=== PATIENT | female | born 1945 | race Caucasian/White ===

== ENCOUNTER 2018-05-03 14:38 | Inpatient (IN) ==
[2018-05-03] MEDS ORDERED: Mag Hydrox/Al Hydrox/Simeth 30 ML UDC PO PRN (20:53)
[2018-05-03] MEDS ORDERED: Ondansetron ODT 4 MG TAB.RAPDIS SL PRN (20:53)
[2018-05-03] MEDS: Melatonin 3 MG TABLET PO SCH (21:30)
[2018-05-03] MEDS: Sennosides/Docusate Sodium TABLET PO SCH (21:30)
[2018-05-03] MEDS: *HR* OxyCODONE Immed Rel 5 MG TABLET PO PRN (21:30)
[2018-05-04 05:02] LABS: Basophils % 0.3 %; Eosinophils # 0.3 K/mcL (0.0-0.6); Eosinophils % 5.3 %; Hematocrit 25.1 % (35.3-44.9); Hemoglobin 8.2 g/dL (11.5-15.4); Immature Granulocytes % 0.2 % (0-4); Lymphocytes # 1.2 K/mcL (0.6-4.6); Lymphocytes % 19.2 %; Mean Corpuscular HGB Conc 32.7 g/dL (31.6-35.5); Mean Corpuscular Hemoglobin 30.4 pg (28.0-33.3); Mean Platelet Volume 9.8 fL (9.4-12.4); Monocytes % 15.6 %; Neutrophils # 3.6 K/mcL (1.6-8.9); Platelet Count 117 K/mcL (140-400); Red Cell Distribution Width 16.1 % (11.5-14.5); Segmented Neutrophils % 59.4 %
[2018-05-04 05:08] LABS: INR 1.2; Prothrombin Time 13.9 Seconds (9.4-12.1)
[2018-05-04 05:11] LABS: Activated Partial Thrombo Time 27.4 Seconds (26.0-36.0)
[2018-05-04] MEDS: *HR* Enoxaparin 40 MG/0.4 ML SYRINGE SQ SCH (05:26)
[2018-05-04 05:30] LABS: BUN/Creatinine Ratio 33 (6-26); Blood Urea Nitrogen 12 mg/dL (8-23); Calcium 7.3 mg/dL (8.6-10.3); Carbon Dioxide 29 mEq/L (23-29); Chloride 105 mEq/L (98-107); Glucose 101 mg/dL (70-105); Osmolality,Calculated 284 (280-300); Potassium 4.2 mEq/L (3.5-5.1); Sodium 137 mEq/L (136-145); eGFR For Non-African Americans > 60 (> 60)
[2018-05-04] MEDS ORDERED: Metoprolol XL (24 HR) Succ 50 MG TAB.ER.24H PO SCH (09:00)
[2018-05-04] MEDS: Cyanocobalamin (B-12) 1,000 MCG TABLET PO SCH (09:03)
[2018-05-04] MEDS: Sennosides/Docusate Sodium TABLET PO SCH ×2 (09:03→21:37)
[2018-05-04] MEDS: Folic Acid 1 MG TABLET PO SCH (09:04)
[2018-05-04] MEDS: Vitamin B Complex/Vit C/Vit E 1 EACH TABLET PO SCH (09:04)
[2018-05-04] MEDS: *HR* OxyCODONE Immed Rel 5 MG TABLET PO PRN ×2 (09:04→21:37)
[2018-05-04] MEDS: Loratadine 10 MG TABLET PO SCH (09:04)
[2018-05-04] MEDS: Furosemide 20 MG TABLET PO SCH (09:04)
[2018-05-04] MEDS: Aspirin Enteric Coated 325 MG Tablet PO SCH (09:05)
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
[2018-05-04] MEDS: Melatonin 3 MG TABLET PO SCH (21:36)
[2018-05-05] MEDS: Ibuprofen 400 MG TABLET PO PRN (01:12)
[2018-05-05] MEDS: *HR* Enoxaparin 40 MG/0.4 ML SYRINGE SQ SCH (05:54)
[2018-05-05] MEDS: Metoprolol XL (24 HR) Succ 50 MG TAB.ER.24H PO SCH (07:45)
[2018-05-05] MEDS: Aspirin Enteric Coated 325 MG Tablet PO SCH (09:10)
[2018-05-05] MEDS: Sennosides/Docusate Sodium TABLET PO SCH ×2 (09:10→20:35)
[2018-05-05] MEDS: Cyanocobalamin (B-12) 1,000 MCG TABLET PO SCH (09:10)
[2018-05-05] MEDS: Furosemide 20 MG TABLET PO SCH (09:10)
[2018-05-05] MEDS: Vitamin B Complex/Vit C/Vit E 1 EACH TABLET PO SCH (09:10)
[2018-05-05] MEDS: Loratadine 10 MG TABLET PO SCH (09:10)
[2018-05-05] MEDS: Folic Acid 1 MG TABLET PO SCH (09:11)
--- NOTE | 2018-05-05 13:07 | Internal Med Progress Note ---
Date of Encounter: 05/05/18 Time of Encounter: 13:05 - Assessment and plan (1) Right femoral fracture Current Visit: Yes Status: Acute Assessment and plan: No acute issues. Patient's right leg continues with splint and Prem wrap Pancoast antirheumatic leg. Incisions appear dry and intact. Patient is well managed with current oral medications. Patient states that physical therapy what well on Sunday. She remains nonweightbearing to right leg. 2 with current plan of care. Qualifiers: Encounter type: initial encounter Femur location: unspecified portion of femur Fracture type: closed Fracture morphology: unspecified fracture morphology Qualified Code(s): S72.91XA - Unspecified fracture of right femur, initial encounter for closed fracture (2) Coronary artery disease Current Visit: Yes Status: Chronic Assessment and plan: No acute issues. Patient denies any chest discomforts or palpitations. Patient denies any hvik-[id number] symptoms. We will continue with current medications Qualifiers: Coronary Disease-Associated Artery/Lesion type: bypass graft [place] vs. transplanted heart: [place] heart Associated angina: without angina Qualified Code(s): I25.810 - Atherosclerosis of coronary artery bypass graft(s) without angina pectoris (3) Rheumatoid arthritis Current Visit: Yes Status: Acute Assessment and plan: No acute issues. Patient denies any current joint pain. We will continue with current medication Qualifiers: Rheumatoid arthritis location: multiple sites Rheumatoid factor presence: unspecified presence Qualified Code(s): M06.9 - Rheumatoid arthritis, unspecified (4) Iron deficiency anemia Current Visit: Yes Status: Acute Assessment and plan: Patient's current hemoglobin is 8.2 which has been a slight drop for her. We will repeat labs in the morning. Patient currently is asymptomatic on vital signs Qualifiers: Iron deficiency anemia type: other iron deficiency Qualified Code(s): D50.8 - Other iron deficiency anemias (5) Hypothyroidism Current Visit: Yes Status: Acute Assessment and plan: Patient's most recent TSH showed at 19. T3 and T4 levels pending. Continue with current Levothyroxine dose pending todays labs. Qualifiers: Hypothyroidism type: unspecified Qualified Code(s): E03.9 - Hypothyroidism , unspecified - Time Spent With Patient less than 15 minutes - Subjective Interval history: No acute issues. Patient appears relaxed and currently denies any discomforts or shortness of breath. Patient states that her pain has been fairly well- controlled to her right leg surgical incision. Patient states that physical therapy what well yesterday and denies any near syncopal type symptoms - Constitutional Vitals: Temp Pulse Resp BP Pulse Ox 98.7 F 68 16 102/63 94 05/05/18 07:18 10 07:18 10 07:18 05/05/18 07:18 05/05/18 07:18 General appearance: Present: A&O X 3 - Head Head exam: Present: atraumatic, normocephalic - Eye Eye exam: Present: PERRL, conjuntiva pink, sclera anicteric Pupils: Present: PERRL - Neck Neck exam general surgery: Present: supple, trachea midline. Absent: lymphadenopathy - Respiratory Respiratory exam: Present: CTAB. Absent: accessory muscle use, rales, rhonchi, wheezes - Cardiovascular Cardiovascular exam: Present: RRR, +S1, +S2. Absent: diastolic murmur, gallop, rubs, systolic murmur - GI/Abdominal GI/Abdominal exam: Present: normal bowel sounds, soft, no peritoneal signs. Absent: distended, tenderness - Extremities Exam Extremities exam: Present: warm, radial pulses palpable and symmetrical. Absent : calf tenderness, cyanotic, pedal edema Additional comments: Right leg continues to have a strep type dressing over a splint with no drainage noted to dressing. Distal CV is normal with capillary refill less than 3 seconds. Noted +2 edema to bilateral lower extremities - Neurological Exam Neurological exam: Present: CN II-XII intact, oriented X3, no focal deficits. Absent: pronater drift, facial droop, speech deficit - Skin Skin exam: Present: dry, intact Internal Medicine: Result - Labs CBC & Chem 7: 05/04/18 04:55 05/04/18 04:55 - ABG Interpretation ABG results: PT/INR, D-dimer PT 13.9 Seconds (9.4-12.1) H 05/04/18 04:55 Consult Discharge Plan - Plan Referrals: Darrel Loving MD [Primary Care Provider] -
[2018-05-05] MEDS: *HR* OxyCODONE Immed Rel 5 MG TABLET PO PRN ×2 (14:07→20:35)
[2018-05-05 18:27] LABS: Triiodothyronine (T3) Free 1.57 pg/mL (2.50-3.90)
[2018-05-05] MEDS: Melatonin 3 MG TABLET PO SCH (20:34)
[2018-05-05] MEDS ORDERED: NON-FORMULARY MEDICATION 1 EACH EACH (Alendronate Sodium [Fosamax] 70 MG) PO SCH (20:55)
[2018-05-06 06:01] LABS: Hematocrit 26.2 % (35.3-44.9); Hemoglobin 8.3 g/dL (11.5-15.4); Mean Corpuscular HGB Conc 31.7 g/dL (31.6-35.5); Mean Corpuscular Volume 94.6 fL (83.0-100.0); Mean Platelet Volume 9.7 fL (9.4-12.4); Platelet Count 173 K/mcL (140-400); Red Blood Count 2.77 M/mcL (3.82-4.97); Red Cell Distribution Width 17.1 % (11.5-14.5)
[2018-05-06] MEDS: *HR* Enoxaparin 40 MG/0.4 ML SYRINGE SQ SCH (06:12)
[2018-05-06] MEDS: *HR* OxyCODONE Immed Rel 5 MG TABLET PO PRN ×2 (06:12→16:31)
[2018-05-06 06:23] LABS: Alanine Aminotransferase 12 Units/L (7-52); Albumin 2.3 g/dL (3.5-5.7); Albumin/Globulin Ratio 1.5 (1.1-2.2); Alkaline Phosphatase 37 Units/L (34-104); Aspartate Amino Transferase 26 Units/L (13-39); BUN/Creatinine Ratio 29 (6-26); Bilirubin,Total 1.4 mg/dL (0.3-1.0); Blood Urea Nitrogen 11 mg/dL (8-23); Calcium 7.3 mg/dL (8.6-10.3); Carbon Dioxide 29 mEq/L (23-29); Chloride 103 mEq/L (98-107); Globulin 1.5 g/dL (2.4-3.5); Glucose 103 mg/dL (70-105); Magnesium 1.8 mg/dL (1.6-2.6); Osmolality,Calculated 280 (280-300); Potassium 4.2 mEq/L (3.5-5.1); Sodium 135 mEq/L (136-145); Total Protein 3.8 g/dL (6.4-8.9); eGFR For Non-African Americans > 60 (> 60)
[2018-05-06] MEDS: Vitamin B Complex/Vit C/Vit E 1 EACH TABLET PO SCH (08:11)
[2018-05-06] MEDS: Sennosides/Docusate Sodium TABLET PO SCH ×2 (08:11→20:46)
[2018-05-06] MEDS: Cyanocobalamin (B-12) 1,000 MCG TABLET PO SCH (08:11)
[2018-05-06] MEDS: Folic Acid 1 MG TABLET PO SCH (08:11)
[2018-05-06] MEDS: Aspirin Enteric Coated 325 MG Tablet PO SCH (08:11)
[2018-05-06] MEDS: Furosemide 20 MG TABLET PO SCH (08:12)
[2018-05-06] MEDS: Loratadine 10 MG TABLET PO SCH (08:12)
[2018-05-06] MEDS: Metoprolol XL (24 HR) Succ 50 MG TAB.ER.24H PO SCH (08:12)
[2018-05-06] MEDS: Ibuprofen 400 MG TABLET PO PRN ×2 (08:16→20:46)
--- NOTE | 2018-05-06 10:00 | Internal Med Progress Note ---
Date of Encounter: 05/06/18 Time of Encounter: 09:58 - Assessment and plan (1) Right femoral fracture Current Visit: Yes Status: Inactive Assessment and plan: No acute issues. Patient's right leg continues with splint and Prem wrap along the entire leg splint. Incisions appear dry and intact. Patient is well managed with current oral medications. Patient states that physical therapy what well on Sunday. She remains nonweightbearing to right leg. We will continue current plan of care. Patient noted to have continued moderate edema to bilateral lower extremities. We will obtain a venous Doppler of bilateral legs. Negative Homans Qualifiers: Encounter type: initial encounter Femur location: unspecified portion of femur Fracture type: closed Fracture morphology: unspecified fracture morphology Qualified Code(s): S72.91XA - Unspecified fracture of right femur, initial encounter for closed fracture (2) Coronary artery disease Current Visit: Yes Status: Chronic Assessment and plan: No acute issues. Patient denies any chest discomforts or palpitations. Patient denies any pryw-ddqubkyj-uxmi symptoms. We will continue with current medications. Arrangements are being made for consult with Dr. Wilson cardiologists to evaluate need for possible Holter monitor due to patient's history of syncope Qualifiers: Coronary Disease-Associated Artery/Lesion type: bypass graft [place] vs. transplanted heart: [place] heart Associated angina: without angina Qualified Code(s): I25.810 - Atherosclerosis of coronary artery bypass graft(s) without angina pectoris (3) Rheumatoid arthritis Current Visit: Yes Status: Acute Assessment and plan: No acute issues. Patient denies any current joint pain. We will continue with current medication Qualifiers: Rheumatoid arthritis location: multiple sites Rheumatoid factor presence: unspecified presence Qualified Code(s): M06.9 - Rheumatoid arthritis, unspecified (4) Iron deficiency anemia Current Visit: Yes Status: Acute Assessment and plan: Patient's current hemoglobin is 8.3 which has been a slight increase. We will repeat labs later in the week. Patient currently is asymptomatic on vital signs Qualifiers: Iron deficiency anemia type: other iron deficiency Qualified Code(s): D50.8 - Other iron deficiency anemias (5) Hypothyroidism Current Visit: Yes Status: Acute Assessment and plan: Patient's most recent TSH showed at 19. T3 and T4 levels rec'd with no changes in dosing required, other than dosing times. Continue with current Levothyroxine dose pending todays labs. Qualifiers: Hypothyroidism type: unspecified Qualified Code(s): E03.9 - Hypothyroidism , unspecified - Time Spent With Patient less than 15 minutes - Subjective Interval history: Patient had complained of difficulty sleeping last evening and was started on Ambien which she states had some effectiveness. Patient appears relaxed and currently denies any discomforts or shortness of breath. Patient states that her pain has been fairly well-controlled to her right leg surgical incision with her current pain medications.. Patient states that physical therapy what well yesterday and denies any near syncopal type symptoms - Constitutional Vitals: Temp Pulse Resp BP Pulse Ox 98.3 F 74 16 100/64 94 05/06/18 08:14 05/06/18 08:14 05/06/18 08:14 05/06/18 08:14 05/06/18 08:14 General appearance: Present: A&O X 3 - Head Head exam: Present: atraumatic, normocephalic - Eye Eye exam: Present: PERRL, conjuntiva pink, sclera anicteric Pupils: Present: PERRL - Neck Neck exam general surgery: Present: supple, trachea midline. Absent: lymphadenopathy - Respiratory Respiratory exam: Present: CTAB. Absent: accessory muscle use, rales, rhonchi, wheezes - Cardiovascular Cardiovascular exam: Present: RRR, +S1, +S2. Absent: diastolic murmur, gallop, rubs, systolic murmur - GI/Abdominal GI/Abdominal exam: Present: normal bowel sounds, soft, no peritoneal signs. Absent: distended, tenderness - Extremities Exam Extremities exam: Present: pedal edema, warm, radial pulses palpable and symmetrical. Absent: calf tenderness, cyanotic Additional comments: Patient has moderate 2+ edema to bilateral lower extremities. Right leg with full-length Prem wrap along splint. Appears dry and intact - Neurological Exam Neurological exam: Present: CN II-XII intact, oriented X3, no focal deficits. Absent: pronater drift, facial droop, speech deficit - Skin Skin exam: Present: dry, intact Internal Medicine: Result - Labs CBC & Chem 7: 05/06/18 05:50 05/06/18 05:50 Labs: Short CBC 05/06/18 Range/Units 05:50 WBC 6.9 (4.3-11.1) K/mcL Hgb 8.3 L (11.5-15.4) g/dL Hct 26.2 L (35.3-44.9) % Plt Count 173 (140-400) K/mcL BMP 05/06/18 05:50 Sodium 135 L Potassium 4.2 Chloride 103 Carbon Dioxide 29 BUN 11 Creatinine 0.38 L Glucose 103 Calcium 7.3 L Liver Function 05/06/18 Range/Units 05:50 Total Bilirubin 1.4 H (0.3-1.0) mg/dL AST 26 (13-39) Units/L ALT 12 (7-52) Units/L Alkaline Phosphatase 37 (34-104) Units/L Albumin 2.3 L (3.5-5.7) g/dL - ABG Interpretation ABG results: PT/INR, D-dimer PT 13.9 Seconds (9.4-12.1) H 05/04/18 04:55 Consult Discharge Plan - Plan Referrals: Darrel Loving MD [Primary Care Provider] -
[2018-05-06] MEDS: Acetaminophen 325 MG TABLET PO PRN (15:01)
[2018-05-06] MEDS: Melatonin 3 MG TABLET PO SCH (20:46)
[2018-05-07] MEDS: *HR* Enoxaparin 40 MG/0.4 ML SYRINGE SQ SCH (04:21)
[2018-05-07] MEDS: *HR* OxyCODONE Immed Rel 5 MG TABLET PO PRN ×3 (04:22→22:00)
[2018-05-07] MEDS: Loratadine 10 MG TABLET PO SCH (07:46)
[2018-05-07] MEDS: Cyanocobalamin (B-12) 1,000 MCG TABLET PO SCH (07:46)
[2018-05-07] MEDS: Folic Acid 1 MG TABLET PO SCH (07:46)
[2018-05-07] MEDS: Aspirin Enteric Coated 325 MG Tablet PO SCH (07:46)
[2018-05-07] MEDS: Acetaminophen 325 MG TABLET PO PRN (07:47)
[2018-05-07] MEDS: Vitamin B Complex/Vit C/Vit E 1 EACH TABLET PO SCH (07:47)
[2018-05-07] MEDS: Furosemide 20 MG TABLET PO SCH (07:47)
[2018-05-07] MEDS: Metoprolol XL (24 HR) Succ 50 MG TAB.ER.24H PO SCH (07:47)
[2018-05-07] MEDS: Sennosides/Docusate Sodium TABLET PO SCH ×2 (07:47→22:02)
[2018-05-07 08:58] LABS: % Iron Saturation 16 % (15-50); Iron 48 mcg/dL (50-170); Transferrin 218 mg/dL (203-362)
[2018-05-07 09:25] LABS: Folate > 22.3 ng/mL (3.0-16.0); Vitamin B12 > 1500 pg/mL (250-1100)
--- NOTE | 2018-05-07 09:44 | Internal Med Progress Note ---
Date of Encounter: 05/07/18 Time of Encounter: 09:41 - Assessment and plan (1) Femur fracture, right Current Visit: Yes Status: Acute Assessment and plan: Nonweightbearing to right lower extremity. Follow up with ortho as scheduled. Continue PT and OT. Will follow progress. Continue current pain medication. Awaiting Doppler results for bilateral lower extremities Qualifiers: Encounter type: sequela Femur location: unspecified portion of femur Fracture type: closed Fracture morphology: unspecified fracture morphology Qualified Code(s): S72.91XS - Unspecified fracture of right femur, sequela (2) Coronary artery disease Current Visit: Yes Status: Chronic Assessment and plan: Denies chest pain. Continue current medication. Qualifiers: Coronary Disease-Associated Artery/Lesion type: bypass graft [place] vs. transplanted heart: [place] heart Associated angina: without angina Qualified Code(s): I25.810 - Atherosclerosis of coronary artery bypass graft(s) without angina pectoris (3) Hypothyroidism Current Visit: Yes Status: Acute Assessment and plan: Continue current medication. Will monitor TSH and free T4 Qualifiers: Hypothyroidism type: unspecified Qualified Code(s): E03.9 - Hypothyroidism , unspecified (4) Rheumatoid arthritis Current Visit: Yes Status: Acute Assessment and plan: Denies current complaints. Continue current medications Qualifiers: Rheumatoid arthritis location: multiple sites Rheumatoid factor presence: unspecified presence Qualified Code(s): M06.9 - Rheumatoid arthritis, unspecified (5) Iron deficiency anemia Current Visit: Yes Status: Acute Assessment and plan: Last hemoglobin was 8.3. Patient asymptomatic. Will repeat labs this week Qualifiers: Iron deficiency anemia type: other iron deficiency Qualified Code(s): D50.8 - Other iron deficiency anemias - Time Spent With Patient less than 15 minutes - Subjective Interval history: Participating well with therapy. Right lower extremity remains nonweightbearing. Increased fatigue today States she did not sleep well. Pain was not an a factor but just the fact that she cannot move her right lower extremity. States last bowel movement was yesterday. Maintaining appetite and hydration. Dr. Mckeon cardiology went to see patient last night. Denies any new syncopal episodes. Denies shortness of breath or chest pain. Denies fever , chills, nausea, vomiting or diarrhea. Kirti Doppler's obtain to bilateral lower extremities. Awaiting report - Constitutional Vitals: Temp Pulse Resp BP Pulse Ox 98.0 F 68 17 109/65 98 05/07/18 07:19 05/07/18 07:19 05/07/18 07:19 05/07/18 07:19 05/07/18 07:19 General appearance: Present: cooperative, A&O X 3, pleasant, no acute distress, answers questions appropriately - Head Head exam: Present: atraumatic, normocephalic - Eye Eye exam: Present: PERRL, conjuntiva pink, sclera anicteric Pupils: Present: PERRL - Neck Neck exam general surgery: Present: supple, trachea midline. Absent: lymphadenopathy - Respiratory Respiratory exam: Present: CTAB. Absent: accessory muscle use, rales, rhonchi, wheezes - Cardiovascular Cardiovascular exam: Present: RRR, +S1, +S2. Absent: diastolic murmur, gallop, rubs, systolic murmur - GI/Abdominal GI/Abdominal exam: Present: normal bowel sounds, soft, no peritoneal signs. Absent: distended, tenderness - Extremities Exam Extremities exam: Present: warm, radial pulses palpable and symmetrical. Absent : calf tenderness, cyanotic, pedal edema Additional comments: 2+ edema to bilateral lower extremities. - [place] Comments: Dressings dry and intact to right lower extremity - Neurological Exam Neurological exam: Present: CN II-XII intact, oriented X3, no focal deficits. Absent: pronater drift, facial droop, speech deficit - Skin Skin exam: Present: dry, intact Internal Medicine: Result - Labs CBC & Chem 7: 05/06/18 05:50 05/06/18 05:50 - ABG Interpretation ABG results: PT/INR, D-dimer PT 13.9 Seconds (9.4-12.1) H 05/04/18 04:55 Consult Discharge Plan - Plan Referrals: Darrel Loving MD [Primary Care Provider] -
[2018-05-07] MEDS ORDERED: Isovue-370 500 ML INFUS..BTL IV ONE ×2 (14:16→14:46)
[2018-05-07] MEDS: Melatonin 3 MG TABLET PO SCH (22:01)
[2018-05-08] MEDS: Ibuprofen 400 MG TABLET PO PRN (02:08)
[2018-05-08] MEDS: *HR* Enoxaparin 40 MG/0.4 ML SYRINGE SQ SCH (05:09)
[2018-05-08] MEDS: *HR* OxyCODONE Immed Rel 5 MG TABLET PO PRN ×2 (05:09→21:38)
[2018-05-08] MEDS: Sennosides/Docusate Sodium TABLET PO SCH ×2 (08:11→19:44)
[2018-05-08] MEDS: Folic Acid 1 MG TABLET PO SCH (08:15)
[2018-05-08] MEDS: Vitamin B Complex/Vit C/Vit E 1 EACH TABLET PO SCH (08:15)
[2018-05-08] MEDS: Metoprolol XL (24 HR) Succ 50 MG TAB.ER.24H PO SCH (08:21)
[2018-05-08] MEDS: Aspirin Enteric Coated 325 MG Tablet PO SCH (08:21)
[2018-05-08] MEDS: Furosemide 20 MG TABLET PO SCH (08:21)
[2018-05-08] MEDS: Cyanocobalamin (B-12) 1,000 MCG TABLET PO SCH (08:21)
[2018-05-08] MEDS: Loratadine 10 MG TABLET PO SCH (08:21)
[2018-05-08] MEDS: Acetaminophen 325 MG TABLET PO PRN (08:27)
--- NOTE | 2018-05-08 09:24 | Internal Med Progress Note ---
Date of Encounter: 05/08/18 Time of Encounter: 09:20 - Assessment and plan (1) Right femoral fracture Current Visit: Yes Status: Inactive Assessment and plan: No acute issues. Patient's right leg continues with splint and Prem wrap along the entire leg splint. Incisions remained dry and intact. Pain is well managed with current oral medications, although patient states she continues to have pain during repositioning immobilization. Pain also has been improved with the use of continuous icing. She remains nonweightbearing to right leg. We will continue current plan of care and physical therapy. CTA of lower body vascular shows only mild atherosclerotic disease and shows adequate arterial runoff. Recent bilateral lower extremity Doppler showed no evidence of DVT. Patient noted to have continued moderate edema to bilateral lower extremities. Qualifiers: Encounter type: initial encounter Femur location: unspecified portion of femur Fracture type: closed Fracture morphology: unspecified fracture morphology Qualified Code(s): S72.91XA - Unspecified fracture of right femur, initial encounter for closed fracture (2) Coronary artery disease Current Visit: Yes Status: Chronic Assessment and plan: No acute issues. Patient denies any chest discomforts or palpitations. Patient continues with no evidence of [id number]-[id number] symptoms. We will continue with current medications. Qualifiers: Coronary Disease-Associated Artery/Lesion type: bypass graft [place] vs. transplanted heart: [place] heart Associated angina: without angina Qualified Code(s): I25.810 - Atherosclerosis of coronary artery bypass graft(s) without angina pectoris (3) Rheumatoid arthritis Current Visit: Yes Status: Acute Assessment and plan: No acute issues. Patient denies any current joint pain. We will continue with current medication Qualifiers: Rheumatoid arthritis location: multiple sites Rheumatoid factor presence: unspecified presence Qualified Code(s): M06.9 - Rheumatoid arthritis, unspecified - Time Spent With Patient less than 15 minutes - Subjective Interval history: Patient appears relaxed, but states she continues to have moderate pain to her right leg which increases when repositioning. Patient continues to be nonweightbearing with right leg. Patient states she slept better last night after applying ice to right leg and continues to use ice at this time while resting in chair. Patient denies any other issues. - Constitutional Vitals: Temp Pulse Resp BP Pulse Ox 98.5 F 66 16 111/60 95 05/08/18 07:14 05/08/18 07:14 05/08/18 07:14 05/08/18 07:14 05/08/18 07:14 General appearance: Present: cooperative, A&O X 3, pleasant, no acute distress, answers questions appropriately - Head Head exam: Present: atraumatic, normocephalic - Eye Eye exam: Present: PERRL, conjuntiva pink, sclera anicteric Pupils: Present: PERRL - Neck Neck exam general surgery: Present: supple, trachea midline. Absent: lymphadenopathy - Respiratory Respiratory exam: Present: CTAB. Absent: accessory muscle use, rales, rhonchi, wheezes - Cardiovascular Cardiovascular exam: Present: RRR, +S1, +S2. Absent: diastolic murmur, gallop, rubs, systolic murmur - GI/Abdominal GI/Abdominal exam: Present: normal bowel sounds, soft, no peritoneal signs. Absent: distended, tenderness - Extremities Exam Extremities exam: Present: warm, radial pulses palpable and symmetrical. Absent : calf tenderness, cyanotic, pedal edema Additional comments: Right leg continues with folate Prem wrap and splint in place. Distal CV checks show less than 3 second capillary refill. Patient continues to have moderate edema to bilateral lower extremities. - Neurological Exam Neurological exam: Present: CN II-XII intact, oriented X3, no focal deficits. Absent: pronater drift, facial droop, speech deficit - Skin Skin exam: Present: dry, intact Internal Medicine: Result - Labs CBC & Chem 7: 05/06/18 05:50 05/06/18 05:50 - ABG Interpretation ABG results: PT/INR, D-dimer PT 13.9 Seconds (9.4-12.1) H 05/04/18 04:55 - Impressions Impressions Aorta w/Runoff CTA 05/07/18 14:46 IMPRESSION: 1. Mild atherosclerotic plaque in the aortoiliac circulation with no significant inflow disease or aneurysm. Intact bilateral lower extremity runoff with limitations as noted above. 2. Extensive anasarca within the flanks bilaterally and throughout the lower extremities. The findings are nonspecific and may be related to cardiac disease. Of note, there are now bilateral pleural effusions present at the lung bases. 3. Stable large hernia containing the stomach within the thoracic cavity. No acute bowel pathology. 4. Changes of previous cholecystectomy and hysterectomy. D/ / 05/07/2018 17:22:04 Ehsan Santillan MD / [facility] Interpreting Provider: Ehsan Santillan MD Consult Discharge Plan - Plan Referrals: Darrel Loving MD [Primary Care Provider] -
[2018-05-08] MEDS: Melatonin 3 MG TABLET PO SCH (21:37)
[2018-05-09] MEDS: Ibuprofen 400 MG TABLET PO PRN ×2 (02:38→20:47)
[2018-05-09] MEDS: Acetaminophen 325 MG TABLET PO PRN (06:53)
[2018-05-09] MEDS: *HR* Enoxaparin 40 MG/0.4 ML SYRINGE SQ SCH (06:54)
[2018-05-09] MEDS: Metoprolol XL (24 HR) Succ 50 MG TAB.ER.24H PO SCH (07:52)
[2018-05-09 08:24] LABS: % Iron Saturation 15 % (15-50); Iron 48 mcg/dL (50-170); Transferrin 229 mg/dL (203-362)
[2018-05-09] MEDS: Sennosides/Docusate Sodium TABLET PO SCH ×2 (08:49→20:50)
[2018-05-09] MEDS: Vitamin B Complex/Vit C/Vit E 1 EACH TABLET PO SCH (08:55)
[2018-05-09] MEDS: Cyanocobalamin (B-12) 1,000 MCG TABLET PO SCH (08:56)
[2018-05-09] MEDS: Furosemide 20 MG TABLET PO SCH (08:57)
[2018-05-09] MEDS: Folic Acid 1 MG TABLET PO SCH (08:57)
[2018-05-09] MEDS: Loratadine 10 MG TABLET PO SCH (08:59)
[2018-05-09] MEDS: Aspirin Enteric Coated 325 MG Tablet PO SCH (08:59)
--- NOTE | 2018-05-09 09:58 | Internal Med Progress Note ---
Date of Encounter: 05/09/18 Time of Encounter: 09:56 - Assessment and plan (1) Femur fracture, right Current Visit: Yes Status: Acute Assessment and plan: Nonweightbearing to right lower extremity. Follow up with ortho as scheduled. Continue PT and OT. Will follow progress. Continue current pain medication. Qualifiers: Encounter type: sequela Femur location: unspecified portion of femur Fracture type: closed Fracture morphology: unspecified fracture morphology Qualified Code(s): S72.91XS - Unspecified fracture of right femur, sequela (2) Coronary artery disease Current Visit: Yes Status: Chronic Assessment and plan: Denies chest pain. Continue current medication. Qualifiers: Coronary Disease-Associated Artery/Lesion type: bypass graft [place] vs. transplanted heart: [place] heart Associated angina: without angina Qualified Code(s): I25.810 - Atherosclerosis of coronary artery bypass graft(s) without angina pectoris (3) Hypothyroidism Current Visit: Yes Status: Acute Assessment and plan: Continue current medication. Will monitor TSH and free T4 Qualifiers: Hypothyroidism type: unspecified Qualified Code(s): E03.9 - Hypothyroidism , unspecified (4) Rheumatoid arthritis Current Visit: Yes Status: Acute Assessment and plan: Denies current complaints. Continue current medications Qualifiers: Rheumatoid arthritis location: multiple sites Rheumatoid factor presence: unspecified presence Qualified Code(s): M06.9 - Rheumatoid arthritis, unspecified (5) Iron deficiency anemia Current Visit: Yes Status: Acute Assessment and plan: Last hemoglobin was 8.3. Patient asymptomatic. Will repeat labs in am Qualifiers: Iron deficiency anemia type: other iron deficiency Qualified Code(s): D50.8 - Other iron deficiency anemias - Time Spent With Patient less than 15 minutes - Subjective Interval history: Participating well with therapy. Right lower extremity remains nonweightbearing. Increased fatigue today States she did not sleep at all last night. taking melatonin but still unable to fall asleep. States last bowel movement was yesterday. Maintaining appetite and hydration. Denies any new syncopal episodes. Denies shortness of breath or chest pain. Denies fever, chills, nausea, vomiting or diarrhea. - Constitutional Vitals: Temp Pulse Resp BP Pulse Ox 98.3 F 64 16 97/59 95 05/09/18 07:00 05/09/18 07:00 05/09/18 07:00 05/09/18 07:00 05/09/18 07:00 General appearance: Present: cooperative, A&O X 3, pleasant, no acute distress, answers questions appropriately - Head Head exam: Present: atraumatic, normocephalic - Eye Eye exam: Present: PERRL, conjuntiva pink, sclera anicteric Pupils: Present: PERRL - Neck Neck exam general surgery: Present: supple, trachea midline. Absent: lymphadenopathy - Respiratory Respiratory exam: Present: CTAB. Absent: accessory muscle use, rales, rhonchi, wheezes - Cardiovascular Cardiovascular exam: Present: RRR, +S1, +S2. Absent: diastolic murmur, gallop, rubs, systolic murmur - GI/Abdominal GI/Abdominal exam: Present: normal bowel sounds, soft, no peritoneal signs. Absent: distended, tenderness - Extremities Exam Extremities exam: Present: warm, radial pulses palpable and symmetrical. Absent : calf tenderness, cyanotic, pedal edema Additional comments: BLE 1+pitting edema - Incison Comments: right LE incisions healing, no sign of infection. - Neurological Exam Neurological exam: Present: CN II-XII intact, oriented X3, no focal deficits. Absent: pronater drift, facial droop, speech deficit - Skin Skin exam: Present: dry, intact Internal Medicine: Result - Labs CBC & Chem 7: 05/06/18 05:50 05/06/18 05:50 - ABG Interpretation ABG results: PT/INR, D-dimer PT 13.9 Seconds (9.4-12.1) H 05/04/18 04:55 Consult Discharge Plan - Plan Referrals: Darrel Loving MD [Primary Care Provider] -
[2018-05-09] MEDS: *HR* OxyCODONE Immed Rel 5 MG TABLET PO PRN ×3 (11:05→22:52)
[2018-05-09] MEDS: Melatonin 3 MG TABLET PO SCH (20:46)
[2018-05-10] MEDS: Acetaminophen 325 MG TABLET PO PRN (01:09)
[2018-05-10 05:13] LABS: Hematocrit 29.7 % (35.3-44.9); Hemoglobin 9.3 g/dL (11.5-15.4); Mean Corpuscular HGB Conc 31.3 g/dL (31.6-35.5); Mean Corpuscular Hemoglobin 30.6 pg (28.0-33.3); Mean Corpuscular Volume 97.7 fL (83.0-100.0); Mean Platelet Volume 9.3 fL (9.4-12.4); Platelet Count 247 K/mcL (140-400); Red Blood Count 3.04 M/mcL (3.82-4.97); Red Cell Distribution Width 18.2 % (11.5-14.5)
[2018-05-10 05:29] LABS: BUN/Creatinine Ratio 27 (6-26); Blood Urea Nitrogen 11 mg/dL (8-23); Calcium 7.7 mg/dL (8.6-10.3); Carbon Dioxide 28 mEq/L (23-29); Chloride 104 mEq/L (98-107); Glucose 101 mg/dL (70-105); Osmolality,Calculated 286 (280-300); Potassium 4.4 mEq/L (3.5-5.1); Sodium 138 mEq/L (136-145); eGFR For Non-African Americans > 60 (> 60)
[2018-05-10] MEDS: *HR* Enoxaparin 40 MG/0.4 ML SYRINGE SQ SCH (06:19)
[2018-05-10] MEDS: *HR* OxyCODONE Immed Rel 5 MG TABLET PO PRN ×3 (06:20→20:54)
[2018-05-10] MEDS: Loratadine 10 MG TABLET PO SCH (08:11)
[2018-05-10] MEDS: Aspirin Enteric Coated 325 MG Tablet PO SCH (08:11)
[2018-05-10] MEDS: Vitamin B Complex/Vit C/Vit E 1 EACH TABLET PO SCH (08:11)
[2018-05-10] MEDS: Furosemide 20 MG TABLET PO SCH (08:11)
[2018-05-10] MEDS: Folic Acid 1 MG TABLET PO SCH (08:13)
[2018-05-10] MEDS: Cyanocobalamin (B-12) 1,000 MCG TABLET PO SCH (08:13)
[2018-05-10] MEDS: Metoprolol XL (24 HR) Succ 50 MG TAB.ER.24H PO SCH (08:13)
[2018-05-10] MEDS: Sennosides/Docusate Sodium TABLET PO SCH (08:14)
--- NOTE | 2018-05-10 10:06 | Internal Med Progress Note ---
Date of Encounter: 05/10/18 Time of Encounter: 10:04 - Assessment and plan (1) Femur fracture, right Current Visit: Yes Status: Acute Assessment and plan: Nonweightbearing to right lower extremity. Follow up with ortho as scheduled. Continue PT and OT. Will follow progress. Continue current pain medication. Qualifiers: Encounter type: sequela Femur location: unspecified portion of femur Fracture type: closed Fracture morphology: unspecified fracture morphology Qualified Code(s): S72.91XS - Unspecified fracture of right femur, sequela (2) Coronary artery disease Current Visit: Yes Status: Chronic Assessment and plan: Denies chest pain. Continue current medication. Qualifiers: Coronary Disease-Associated Artery/Lesion type: bypass graft [place] vs. transplanted heart: [place] heart Associated angina: without angina Qualified Code(s): I25.810 - Atherosclerosis of coronary artery bypass graft(s) without angina pectoris (3) Hypothyroidism Current Visit: Yes Status: Acute Assessment and plan: Continue current medication. Will monitor TSH and free T4 Qualifiers: Hypothyroidism type: unspecified Qualified Code(s): E03.9 - Hypothyroidism , unspecified (4) Rheumatoid arthritis Current Visit: Yes Status: Acute Assessment and plan: Denies pain. Qualifiers: Rheumatoid arthritis location: multiple sites Rheumatoid factor presence: unspecified presence Qualified Code(s): M06.9 - Rheumatoid arthritis, unspecified (5) Iron deficiency anemia Current Visit: Yes Status: Acute Assessment and plan: Improving. Hemoglobin 9.3 Patient asymptomatic. Qualifiers: Iron deficiency anemia type: other iron deficiency Qualified Code(s): D50.8 - Other iron deficiency anemias (6) Protein deficiency Current Visit: Yes Status: Acute Assessment and plan: Increase protein intake. Patient states she will bring her protein drinks from home. Encourage drink 2 to 3 per day - Time Spent With Patient less than 15 minutes - Subjective Interval history: Participating well with therapy. Right lower extremity remains nonweightbearing. States she slept last night with increasing melatonin. States last bowel movement was yesterday. Maintaining appetite and hydration. Denies any new syncopal episodes. Denies shortness of breath or chest pain. Denies fever, chills, nausea, vomiting or diarrhea. Discussed bilateral lower extremity edema and low albumin levels. Patient states she likes premier protein drinks. Encouraged to drink 2 to 3 per day. - Constitutional Vitals: Temp Pulse Resp BP Pulse Ox 97.7 F 70 16 122/56 96 05/10/18 07:00 05/10/18 07:00 05/10/18 07:00 05/10/18 07:00 05/10/18 07:00 General appearance: Present: cooperative, A&O X 3, pleasant, no acute distress, answers questions appropriately - Head Head exam: Present: atraumatic, normocephalic - Eye Eye exam: Present: PERRL, conjuntiva pink, sclera anicteric Pupils: Present: PERRL - Neck Neck exam general surgery: Present: supple, trachea midline. Absent: lymphadenopathy - Respiratory Respiratory exam: Present: CTAB. Absent: accessory muscle use, rales, rhonchi, wheezes - Cardiovascular Cardiovascular exam: Present: RRR, +S1, +S2. Absent: diastolic murmur, gallop, rubs, systolic murmur - GI/Abdominal GI/Abdominal exam: Present: normal bowel sounds, soft, no peritoneal signs. Absent: distended, tenderness - Extremities Exam Extremities exam: Present: warm, radial pulses palpable and symmetrical. Absent : calf tenderness, cyanotic, pedal edema Additional comments: Bilateral lower extremity edema - Incison Comments: Right lower extremity dressings dry and intact. Brace on - Neurological Exam Neurological exam: Present: CN II-XII intact, oriented X3, no focal deficits. Absent: pronater drift, facial droop, speech deficit - Skin Skin exam: Present: dry, intact Additional comments: Left lower extremity dressing dry and intact Internal Medicine: Result - Labs CBC & Chem 7: 05/10/18 05:07 05/10/18 05:07 Labs: Short CBC 05/10/18 Range/Units 05:07 WBC 7.0 (4.3-11.1) K/mcL Hgb 9.3 L (11.5-15.4) g/dL Hct 29.7 L (35.3-44.9) % Plt Count 247 (140-400) K/mcL BMP 05/10/18 05:07 Sodium 138 Potassium 4.4 Chloride 104 Carbon Dioxide 28 BUN 11 Creatinine 0.41 L Glucose 101 Calcium 7.7 L - ABG Interpretation ABG results: PT/INR, D-dimer PT 13.9 Seconds (9.4-12.1) H 05/04/18 04:55 Consult Discharge Plan - Plan Referrals: Darrel Loving MD [Primary Care Provider] -
[2018-05-10] MEDS: Melatonin 3 MG TABLET PO SCH (20:52)
[2018-05-11] MEDS: Sennosides/Docusate Sodium TABLET PO SCH ×3 (00:27→20:26)
[2018-05-11] MEDS: Ibuprofen 400 MG TABLET PO PRN (01:56)
[2018-05-11] MEDS: *HR* OxyCODONE Immed Rel 5 MG TABLET PO PRN ×2 (05:22→22:49)
[2018-05-11] MEDS: *HR* Enoxaparin 40 MG/0.4 ML SYRINGE SQ SCH (05:23)
[2018-05-11] MEDS: Vitamin B Complex/Vit C/Vit E 1 EACH TABLET PO SCH (09:38)
[2018-05-11] MEDS: Furosemide 20 MG TABLET PO SCH (09:38)
[2018-05-11] MEDS: Cyanocobalamin (B-12) 1,000 MCG TABLET PO SCH (09:38)
[2018-05-11] MEDS: Metoprolol XL (24 HR) Succ 50 MG TAB.ER.24H PO SCH (09:38)
[2018-05-11] MEDS: Loratadine 10 MG TABLET PO SCH (09:38)
[2018-05-11] MEDS: Aspirin Enteric Coated 325 MG Tablet PO SCH (09:38)
[2018-05-11] MEDS: Folic Acid 1 MG TABLET PO SCH (09:38)
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
[2018-05-11] MEDS: Melatonin 3 MG TABLET PO SCH (20:27)
[2018-05-12] MEDS: *HR* Enoxaparin 40 MG/0.4 ML SYRINGE SQ SCH (06:18)
[2018-05-12] MEDS: Metoprolol XL (24 HR) Succ 50 MG TAB.ER.24H PO SCH (07:59)
[2018-05-12] MEDS: Ibuprofen 400 MG TABLET PO PRN (09:29)
[2018-05-12] MEDS: Vitamin B Complex/Vit C/Vit E 1 EACH TABLET PO SCH (09:29)
[2018-05-12] MEDS: Folic Acid 1 MG TABLET PO SCH (09:30)
[2018-05-12] MEDS: Cyanocobalamin (B-12) 1,000 MCG TABLET PO SCH (09:30)
[2018-05-12] MEDS: Aspirin Enteric Coated 325 MG Tablet PO SCH (09:30)
[2018-05-12] MEDS: Furosemide 20 MG TABLET PO SCH (09:30)
[2018-05-12] MEDS: Loratadine 10 MG TABLET PO SCH (09:30)
--- NOTE | 2018-05-12 10:15 | Internal Med Progress Note ---
Date of Encounter: 05/12/18 Time of Encounter: 10:13 - Assessment and plan (1) Femur fracture, right Current Visit: Yes Status: Acute Assessment and plan: Nonweightbearing to right lower extremity. Follow up with ortho as scheduled. Continue PT and OT. Will follow progress. Continue current pain medication. Qualifiers: Encounter type: sequela Femur location: unspecified portion of femur Fracture type: closed Fracture morphology: unspecified fracture morphology Qualified Code(s): S72.91XS - Unspecified fracture of right femur, sequela (2) Coronary artery disease Current Visit: Yes Status: Chronic Assessment and plan: Denies chest pain. Continue current medication. Qualifiers: Coronary Disease-Associated Artery/Lesion type: bypass graft [place] vs. transplanted heart: [place] heart Associated angina: without angina Qualified Code(s): I25.810 - Atherosclerosis of coronary artery bypass graft(s) without angina pectoris (3) Hypothyroidism Current Visit: Yes Status: Acute Assessment and plan: Continue current medication. Will monitor TSH and free T4 Qualifiers: Hypothyroidism type: unspecified Qualified Code(s): E03.9 - Hypothyroidism , unspecified (4) Rheumatoid arthritis Current Visit: Yes Status: Acute Assessment and plan: Denies pain. Qualifiers: Rheumatoid arthritis location: multiple sites Rheumatoid factor presence: unspecified presence Qualified Code(s): M06.9 - Rheumatoid arthritis, unspecified (5) Iron deficiency anemia Current Visit: Yes Status: Acute Assessment and plan: Improving. Hemoglobin 9.3 Patient asymptomatic. Will repeat labs tomorrow Qualifiers: Iron deficiency anemia type: other iron deficiency Qualified Code(s): D50.8 - Other iron deficiency anemias (6) Protein deficiency Current Visit: Yes Status: Acute Assessment and plan: Increase protein intake. Patient states she will bring her protein drinks from home. Encourage drink 2 to 3 per day - Time Spent With Patient less than 15 minutes - Subjective Interval history: Right lower extremity remains nonweightbearing. Maintaining appetite and hydration. Denies any new syncopal episodes. Denies shortness of breath or chest pain. Denies fever, chills, nausea, vomiting or diarrhea. States that she slept well and last bowel movement was yesterday. - Constitutional Vitals: Temp Pulse Resp BP Pulse Ox 98.5 F 70 16 100/64 93 05/12/18 07:03 05/12/18 07:03 05/12/18 07:03 05/12/18 07:03 05/12/18 07:03 General appearance: Present: cooperative, A&O X 3, pleasant, no acute distress, answers questions appropriately - Head Head exam: Present: atraumatic, normocephalic - Eye Eye exam: Present: PERRL, conjuntiva pink, sclera anicteric Pupils: Present: PERRL - Neck Neck exam general surgery: Present: supple, trachea midline. Absent: lymphadenopathy - Respiratory Respiratory exam: Present: CTAB. Absent: accessory muscle use, rales, rhonchi, wheezes - Cardiovascular Cardiovascular exam: Present: RRR, +S1, +S2. Absent: diastolic murmur, gallop, rubs, systolic murmur - GI/Abdominal GI/Abdominal exam: Present: normal bowel sounds, soft, no peritoneal signs. Absent: distended, tenderness - Extremities Exam Extremities exam: Present: warm, radial pulses palpable and symmetrical. Absent : calf tenderness, cyanotic, pedal edema Additional comments: Bilateral lower extremities with non-pitting edema. Both wrapped with senait wraps . - Incison Comments: Incisions to right lower extremity dry and intact. - Neurological Exam Neurological exam: Present: CN II-XII intact, oriented X3, no focal deficits. Absent: pronater drift, facial droop, speech deficit - Skin Skin exam: Present: dry, intact Internal Medicine: Result - Labs CBC & Chem 7: 05/10/18 05:07 05/10/18 05:07 - ABG Interpretation ABG results: PT/INR, D-dimer PT 13.9 Seconds (9.4-12.1) H 05/04/18 04:55 Consult Discharge Plan - Plan Referrals: Darrel Loving MD [Primary Care Provider] -
[2018-05-12] MEDS: Sennosides/Docusate Sodium TABLET PO SCH ×2 (11:42→22:29)
[2018-05-12] MEDS: Acetaminophen 325 MG TABLET PO PRN (14:18)
[2018-05-12] MEDS: *HR* OxyCODONE Immed Rel 5 MG TABLET PO PRN (22:29)
[2018-05-12] MEDS: Melatonin 3 MG TABLET PO SCH (22:29)
[2018-05-13 06:16] LABS: Hemoglobin 8.9 g/dL (11.5-15.4); Mean Corpuscular HGB Conc 30.7 g/dL (31.6-35.5); Mean Corpuscular Hemoglobin 30.1 pg (28.0-33.3); Mean Platelet Volume 9.4 fL (9.4-12.4); Platelet Count 272 K/mcL (140-400); Red Blood Count 2.96 M/mcL (3.82-4.97); Red Cell Distribution Width 18.3 % (11.5-14.5)
[2018-05-13] MEDS: *HR* Enoxaparin 40 MG/0.4 ML SYRINGE SQ SCH (06:16)
[2018-05-13] MEDS: *HR* OxyCODONE Immed Rel 5 MG TABLET PO PRN ×2 (06:16→22:55)
[2018-05-13 06:31] LABS: Alanine Aminotransferase 14 Units/L (7-52); Albumin 2.6 g/dL (3.5-5.7); Albumin/Globulin Ratio 1.5 (1.1-2.2); Alkaline Phosphatase 67 Units/L (34-104); Aspartate Amino Transferase 27 Units/L (13-39); BUN/Creatinine Ratio 50 (6-26); Bilirubin,Total 0.7 mg/dL (0.3-1.0); Blood Urea Nitrogen 19 mg/dL (8-23); Carbon Dioxide 29 mEq/L (23-29); Chloride 102 mEq/L (98-107); Globulin 1.7 g/dL (2.4-3.5); Glucose 91 mg/dL (70-105); Osmolality,Calculated 284 (280-300); Potassium 4.3 mEq/L (3.5-5.1); Sodium 136 mEq/L (136-145); Total Protein 4.3 g/dL (6.4-8.9); eGFR For Non-African Americans > 60 (> 60)
[2018-05-13] MEDS: Aspirin Enteric Coated 325 MG Tablet PO SCH (08:03)
[2018-05-13] MEDS: Cyanocobalamin (B-12) 1,000 MCG TABLET PO SCH (08:03)
[2018-05-13] MEDS: Loratadine 10 MG TABLET PO SCH (08:03)
[2018-05-13] MEDS: Folic Acid 1 MG TABLET PO SCH (08:03)
[2018-05-13] MEDS: Vitamin B Complex/Vit C/Vit E 1 EACH TABLET PO SCH (08:03)
[2018-05-13] MEDS: Metoprolol XL (24 HR) Succ 50 MG TAB.ER.24H PO SCH (08:12)
[2018-05-13] MEDS: Furosemide 20 MG TABLET PO SCH (08:12)
[2018-05-13] MEDS: Sennosides/Docusate Sodium TABLET PO SCH ×2 (08:12→22:54)
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
[2018-05-13] MEDS: Melatonin 3 MG TABLET PO SCH (22:56)
[2018-05-14] MEDS: *HR* Enoxaparin 40 MG/0.4 ML SYRINGE SQ SCH (05:58)
[2018-05-14] MEDS: Ibuprofen 400 MG TABLET PO PRN (10:25)
[2018-05-14] MEDS: Vitamin B Complex/Vit C/Vit E 1 EACH TABLET PO SCH (10:25)
[2018-05-14] MEDS: Cyanocobalamin (B-12) 1,000 MCG TABLET PO SCH (10:25)
[2018-05-14] MEDS: Sennosides/Docusate Sodium TABLET PO SCH ×2 (10:26→22:30)
[2018-05-14] MEDS: Loratadine 10 MG TABLET PO SCH (10:26)
[2018-05-14] MEDS: Furosemide 20 MG TABLET PO SCH (10:26)
[2018-05-14] MEDS: Aspirin Enteric Coated 325 MG Tablet PO SCH (10:26)
[2018-05-14] MEDS: Folic Acid 1 MG TABLET PO SCH (10:27)
[2018-05-14] MEDS: Metoprolol XL (24 HR) Succ 50 MG TAB.ER.24H PO SCH (10:27)
--- NOTE | 2018-05-14 10:47 | Internal Med Progress Note ---
Date of Encounter: 05/14/18 Time of Encounter: 10:45 - Assessment and plan (1) Femur fracture, right Current Visit: Yes Status: Acute Assessment and plan: Nonweightbearing to right lower extremity. Follow up with ortho as scheduled. Continue PT and OT. Will follow progress. Continue current pain medication. Qualifiers: Encounter type: sequela Femur location: unspecified portion of femur Fracture type: closed Fracture morphology: unspecified fracture morphology Qualified Code(s): S72.91XS - Unspecified fracture of right femur, sequela (2) Coronary artery disease Current Visit: Yes Status: Chronic Assessment and plan: Denies chest pain. Continue current medication. Qualifiers: Coronary Disease-Associated Artery/Lesion type: bypass graft [place] vs. transplanted heart: [place] heart Associated angina: without angina Qualified Code(s): I25.810 - Atherosclerosis of coronary artery bypass graft(s) without angina pectoris (3) Hypothyroidism Current Visit: Yes Status: Acute Assessment and plan: Continue current medication. Will monitor TSH and free T4 Qualifiers: Hypothyroidism type: unspecified Qualified Code(s): E03.9 - Hypothyroidism , unspecified (4) Rheumatoid arthritis Current Visit: Yes Status: Acute Assessment and plan: Denies pain. Qualifiers: Rheumatoid arthritis location: multiple sites Rheumatoid factor presence: unspecified presence Qualified Code(s): M06.9 - Rheumatoid arthritis, unspecified (5) Iron deficiency anemia Current Visit: Yes Status: Acute Assessment and plan: Improving. Hemoglobin 8.9 Patient asymptomatic. Qualifiers: Iron deficiency anemia type: other iron deficiency Qualified Code(s): D50.8 - Other iron deficiency anemias (6) Protein deficiency Current Visit: Yes Status: Acute Assessment and plan: Increase protein intake. Patient states she will bring her protein drinks from home. Encourage drink 2 to 3 per day - Subjective Interval history: Right lower extremity remains nonweightbearing. Maintaining appetite and hydration. Denies any new syncopal episodes. Denies shortness of breath or chest pain. Denies fever, chills, nausea, vomiting or diarrhea. States that she slept well and last bowel movement was yesterday. Went for home safety visit yesterday. Feels that it went well. Propel self in wheelchair. Scheduled for discharge tomorrow. - Constitutional Vitals: Temp Pulse Resp BP Pulse Ox 97.7 F 73 18 100/65 99 05/14/18 09:00 05/14/18 09:00 05/14/18 09:00 05/14/18 09:00 05/14/18 09:00 General appearance: Present: cooperative, A&O X 3, pleasant, no acute distress, answers questions appropriately - Head Head exam: Present: atraumatic, normocephalic - Eye Eye exam: Present: PERRL, conjuntiva pink, sclera anicteric Pupils: Present: PERRL - Neck Neck exam general surgery: Present: supple, trachea midline. Absent: lymphadenopathy - Respiratory Respiratory exam: Present: CTAB. Absent: accessory muscle use, rales, rhonchi, wheezes - Cardiovascular Cardiovascular exam: Present: RRR, +S1, +S2. Absent: diastolic murmur, gallop, rubs, systolic murmur - GI/Abdominal GI/Abdominal exam: Present: normal bowel sounds, soft, no peritoneal signs. Absent: distended, tenderness - Extremities Exam Extremities exam: Present: warm, radial pulses palpable and symmetrical. Absent : calf tenderness, cyanotic, pedal edema Additional comments: Edema wrap bilateral lower extremities. Wearing brace - Neurological Exam Neurological exam: Present: CN II-XII intact, oriented X3, no focal deficits. Absent: pronater drift, facial droop, speech deficit - Skin Skin exam: Present: dry, intact Additional comments: Right lower extremity incision dressing dry and intact. Internal Medicine: Result - Labs CBC & Chem 7: 05/13/18 05:55 05/13/18 05:55 - ABG Interpretation ABG results: PT/INR, D-dimer PT 13.9 Seconds (9.4-12.1) H 05/04/18 04:55 Consult Discharge Plan - Plan Referrals: Darrel Loving MD [Primary Care Provider] -
[2018-05-14] MEDS: *HR* OxyCODONE Immed Rel 5 MG TABLET PO PRN (22:28)
[2018-05-14] MEDS: Melatonin 3 MG TABLET PO SCH (22:28)
[2018-05-15] MEDS: *HR* Enoxaparin 40 MG/0.4 ML SYRINGE SQ SCH (04:38)
[2018-05-15] MEDS: Furosemide 20 MG TABLET PO SCH (10:28)
[2018-05-15] MEDS: Sennosides/Docusate Sodium TABLET PO SCH ×2 (10:28→22:19)
[2018-05-15] MEDS: Vitamin B Complex/Vit C/Vit E 1 EACH TABLET PO SCH (10:29)
[2018-05-15] MEDS: Metoprolol XL (24 HR) Succ 50 MG TAB.ER.24H PO SCH (10:29)
[2018-05-15] MEDS: Cyanocobalamin (B-12) 1,000 MCG TABLET PO SCH (10:29)
[2018-05-15] MEDS: Loratadine 10 MG TABLET PO SCH (10:29)
[2018-05-15] MEDS: Folic Acid 1 MG TABLET PO SCH (10:29)
[2018-05-15] MEDS: Aspirin Enteric Coated 325 MG Tablet PO SCH (10:29)
--- NOTE | 2018-05-15 12:04 | Internal Med Progress Note ---
Addendum entered and electronically signed by Giovanni Martin MD 05/16/18 12:24: Multiple attempts to see patient were unsuccessful because she was in the bathroom or therapies, etc. Original Note: Date of Encounter: 05/15/18 Time of Encounter: 12:02 - Assessment and plan (1) Femur fracture, right Current Visit: Yes Status: Acute Assessment and plan: Nonweightbearing to right lower extremity. Follow up with ortho as scheduled. Continue PT and OT. Will follow progress. Continue current pain medication. Qualifiers: Encounter type: sequela Femur location: unspecified portion of femur Fra cture type: closed Fracture morphology: unspecified fracture morphology Qualified Code(s): S72.91XS - Unspecified fracture of right femur, sequela (2) Coronary artery disease Current Visit: Yes Status: Chronic Assessment and plan: Denies chest pain. Continue current medication. Qualifiers: Coronary Disease-Associated Artery/Lesion type: bypass graft [place] vs. transplanted heart: [place] heart Associated angina: without angina Qualified Code(s): I25.810 - Atherosclerosis of coronary artery bypass graft(s) without angina pectoris (3) Hypothyroidism Current Visit: Yes Status: Acute Assessment and plan: Continue current medication. Will monitor TSH and free T4 Qualifiers: Hypothyroidism type: unspecified Qualified Code(s): E03.9 - Hypothyroidism, unspecified (4) Rheumatoid arthritis Current Visit: Yes Status: Acute Assessment and plan: Denies pain. Qualifiers: Rheumatoid arthritis location: multiple sites Rheumatoid factor presence: unspecified presence Qualified Code(s): M06.9 - Rheumatoid arthritis, unspecified (5) Iron deficiency anemia Current Visit: Yes Status: Acute Assessment and plan: Improving. monitor CBC Patient asymptomatic. Qualifiers: Iron deficiency anemia type: other iron deficiency Qualified Code(s): D50.8 - Other iron deficiency anemias (6) Protein deficiency Current Visit: Yes Status: Acute Assessment and plan: Increase protein intake. Patient states she will bring her protein drinks from home. Encourage drink 2 to 3 per day - Time Spent With Patient less than 15 minutes - Subjective Interval history: Right lower extremity remains nonweightbearing. Maintaining appetite and hydration. Denies any new syncopal episodes. Denies shortness of breath or chest pain. Denies fever, chills, nausea, vomiting or diarrhea. States that she slept well and last bowel movement was this am. Propel self in wheelchair. Scheduled for discharge tomorrow. - Constitutional Vitals: Temp Pulse Resp BP Pulse Ox 97.9 F 90 16 102/64 90 05/15/18 07:54 05/15/18 07:54 05/15/18 07:54 05/15/18 07:54 05/15/18 07:54 General appearance: Present: cooperative, A&O X 3, pleasant, no acute distress, answers questions appropriately - Head Head exam: Present: atraumatic, normocephalic - Eye Eye exam: Present: PERRL, conjuntiva pink, sclera anicteric Pupils: Present: PERRL - Neck Neck exam general surgery: Present: supple, trachea midline. Absent: lymphadenopathy - Respiratory Respiratory exam: Present: CTAB. Absent: accessory muscle use, rales, rhonchi, wheezes - Cardiovascular Cardiovascular exam: Present: RRR, +S1, +S2. Absent: diastolic murmur, gallop, rubs, systolic murmur - GI/Abdominal GI/Abdominal exam: Present: normal bowel sounds, soft, no peritoneal signs. Absent: distended, tenderness - Extremities Exam Extremities exam: Present: warm, radial pulses palpable and symmetrical. Absent: calf tenderness, cyanotic, pedal edema Additional comments: RLE drsg dry and intact, leg wrapped with senait wrap and brace on. - Neurological Exam Neurological exam: Present: CN II-XII intact, oriented X3, no focal deficits. Absent: pronater drift, facial droop, speech deficit - Skin Skin exam: Present: dry, intact Internal Medicine: Result - Labs CBC & Chem 7: 05/13/18 05:55 05/13/18 05:55 - ABG Interpretation ABG results: PT/INR, D-dimer PT 13.9 Seconds (9.4-12.1) H 05/04/18 04:55 Consult Discharge Plan - Plan Referrals: Darrel Loving MD [Primary Care Provider] -
[2018-05-15 12:06] LABS: Basophils % 0.6 %; Eosinophils # 0.3 K/mcL (0.0-0.6); Eosinophils % 4.8 %; Hematocrit 30.6 % (35.3-44.9); Hemoglobin 9.7 g/dL (11.5-15.4); Immature Granulocytes % 0.2 % (0-4); Lymphocytes # 1.2 K/mcL (0.6-4.6); Lymphocytes % 19.2 %; Mean Corpuscular HGB Conc 31.7 g/dL (31.6-35.5); Mean Corpuscular Hemoglobin 31.4 pg (28.0-33.3); Mean Platelet Volume 9.3 fL (9.4-12.4); Monocytes # 0.7 K/mcL (0.0-1.3); Monocytes % 11.2 %; Neutrophils # 4.1 K/mcL (1.6-8.9); Platelet Count 286 K/mcL (140-400); Red Blood Count 3.09 M/mcL (3.82-4.97); Red Cell Distribution Width 18.4 % (11.5-14.5)
[2018-05-15 12:14] LABS: Alanine Aminotransferase 22 Units/L (7-52); Albumin/Globulin Ratio 1.5 (1.1-2.2); Alkaline Phosphatase 73 Units/L (34-104); Aspartate Amino Transferase 37 Units/L (13-39); BUN/Creatinine Ratio 42 (6-26); Bilirubin,Total 0.8 mg/dL (0.3-1.0); Blood Urea Nitrogen 19 mg/dL (8-23); Calcium 8.6 mg/dL (8.6-10.3); Carbon Dioxide 30 mEq/L (23-29); Chloride 100 mEq/L (98-107); Glucose 108 mg/dL (70-105); Osmolality,Calculated 285 (280-300); Potassium 4.4 mEq/L (3.5-5.1); Sodium 136 mEq/L (136-145); eGFR For Non-African Americans > 60 (> 60)
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
[2018-05-15 19:27] VITALS: BP 104/65
[2018-05-15] MEDS: Melatonin 3 MG TABLET PO SCH (22:09)
[2018-05-15] MEDS: *HR* OxyCODONE Immed Rel 5 MG TABLET PO PRN (22:10)
[2018-05-16] MEDS: Folic Acid 1 MG TABLET PO SCH (09:59)
[2018-05-16] MEDS: Sennosides/Docusate Sodium TABLET PO SCH (09:59)
[2018-05-16] MEDS: Furosemide 20 MG TABLET PO SCH (09:59)
[2018-05-16] MEDS: Loratadine 10 MG TABLET PO SCH (09:59)
[2018-05-16] MEDS: Aspirin Enteric Coated 325 MG Tablet PO SCH (09:59)
[2018-05-16] MEDS: Vitamin B Complex/Vit C/Vit E 1 EACH TABLET PO SCH (09:59)
[2018-05-16] MEDS: Metoprolol XL (24 HR) Succ 50 MG TAB.ER.24H PO SCH (09:59)
[2018-05-16] MEDS: Cyanocobalamin (B-12) 1,000 MCG TABLET PO SCH (09:59)
--- NOTE | 2018-05-16 11:55 | Physician Discharge Referral ---
Addendum entered and electronically signed by Giovanni Martin MD 05/16/18 12:27: Original Note: Home Health/Hosp Referral Info Transfer to: Home Health Provider in Charge Post Discharge: PCP - Diagnosis (1) Femur fracture, right Priority: Primary Status: Acute (2) Coronary artery disease Priority: Secondary Status: Chronic (3) Hypothyroidism Priority: Secondary Status: Acute (4) Rheumatoid arthritis Priority: Secondary Status: Acute (5) Iron deficiency anemia Priority: Secondary Status: Acute (6) Protein deficiency Priority: Secondary Status: Acute - Respiratory Orders Smoking Cessation: Smoking cessation has been advised. For more information, call the [place] Tobacco Quit Line at 2-945-CABD-NOW. - Diet/Nutrition Diet/Nutrition Orders: Regular - Activity Activity Orders: Chair Activity: List: Nonweightbearing to right lower extremity - Services Needed Following services are medically necessary services: Nursing, Physical Therapy - Transfer Medications Home Medications: Acetaminophen [Tylenol] 650 mg PO Q4HR PRN 05/03/18 [History] Alendronate Sodium [Fosamax] 70 mg PO GREGORY 05/03/18 [History] Aspirin [Ecotrin] 325 mg PO DAILY 05/03/18 [History] Atorvastatin Calcium [Lipitor] 80 mg PO HS 05/03/18 [History] Cyanocobalamin (Vitamin B-12) [Vitamin B12] 125 mcg PO DAILY 05/03/18 [History] Ferrous Sulfate [Iron] 325 mg PO BID 05/03/18 [History] Folic Acid 1 mg PO DAILY 05/03/18 [History] Furosemide [Lasix] 20 mg PO DAILY 05/03/18 [History] Hydroxychloroquine Sulfate [Plaquenil] 200 mg PO BID 05/03/18 [History] Ibuprofen [Ibu] 400 mg PO Q8HR PRN 05/03/18 [History] Levothyroxine [Synthroid] 125 mcg PO DAILY 05/03/18 [History] Liothyronine Sodium [Cytomel] 10 mcg PO DAILY 05/03/18 [History] Loratadine [Claritin] 10 mg PO DAILY 05/03/18 [History] Melatonin 3 mg PO HS 05/03/18 [History] Metoprolol Succinate [Toprol Xl] 50 mg PO DAILY 05/03/18 [History] OxyCODONE Immed Rel [Roxicodone 5 MG] 5 mg PO Q6HR PRN 05/03/18 [History] Oxybutynin Chloride [Ditropan Xl] 5 mg PO DAILY 05/03/18 [History] Pantoprazole Sodium [Protonix] 40 mg PO DAILY 05/03/18 [History] Polyethylene Glycol 3350 [MiraLAX] 17 gm PO DAILY 05/03/18 [History] Sennosides/Docusate Sodium [Docusate Sodium-Senna Tablet] 1 each PO BID 05/03/18 [History] Vitamin B Complex [B Complex] 1 each PO DAILY 05/03/18 [History] Allergies/Adverse Reactions: Allergy/AdvReac Type Severity Reaction Status Date / Time Sulfa (Sulfonamide Allergy Hives Verified 05/03/18 20:19 Antibiotics) Certification: Further, I certify that my clinical findings support that this patient is home bound (i.e. absences from home require considerable and taxing effort and are for medical reasons or rastafari services or infrequently or short duration when for other reasons) because: Homebound Reason: Patient requires assistance of a person or device to safely leave home, Post-surgery restriction and or conditions limit ability to leave home Attestation: My signature below is to certify that this patient is under my care and that I, or nurse practitioner, or a physician's home based assistant working with me, has a [id number] encounter with this patient.
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
[2018-05-16] MEDS: *HR* Enoxaparin 40 MG/0.4 ML SYRINGE SQ SCH (12:23)
== END 2018-05-16 12:41 | disposition home health service (06) | DRG 560 ==
LOC: INPGRE 19:10